=== PATIENT | female | born 1975 | race Hispanic/Latino ===

== ENCOUNTER 2022-04-13 15:28 | Emergency (ER) | payer BC ==
[2022-04-13 16:16] LABS: Urine Blood 2+ (Negative); Urine Glucose Negative (Negative); Urine Protein Negative (Negative)
[2022-04-13] MEDS ORDERED: FAMOTIDINE 20 MG/2 ML VIAL IV ONE (16:22)
[2022-04-13] MEDS ORDERED: ONDANSETRON 4 MG/2 ML VIAL ONE (16:22)
[2022-04-13] MEDS ORDERED: KETOROLAC 30 MG/ML INJ ONE (16:22)
[2022-04-13 16:27] LABS: Urine Bacteria <20 /HPF (<20); Urine Mucus Slight /HPF (None Seen); Urine RBC <5 /HPF (None Seen)
[2022-04-13 16:53] LABS: Absolute Lymphocytes (CBC) 1.2 K/uL (0.7-4.9); Hematocrit 42.9 % (36.0-45.0); Lymphocytes % 18.3 % (15.3-44.8); MCV 89.7 fL (80-100); MPV 8.6 fL (7.6-11.3); RBC Red Blood Cell Count 4.79 M/uL (3.86-4.86)
[2022-04-13 17:01] LABS: AST/SGOT 10 U/L (15-37); Albumin 4.1 g/dL (3.4-5.0); Alkaline Phosphatase 89 U/L (45-117); BUN Blood Urea Nitrogen 7 mg/dL (7-18); Bicarbonate 26 mmol/L (21-32); Bilirubin Total 0.3 mg/dL (0.2-1.0); Glomerular Filtration Rate 109 ml/min (=/>90); Glucose Level 102 mg/dL (74-106); Lipase 147 U/L (73-393); Potassium 3.6 mmol/L (3.5-5.1); Protein, Total 7.9 g/dL (6.4-8.2); Sodium Level 139 mmol/L (136-145)
[2022-04-13 17:08] LABS: ALT/SGPT < 10 U/L (13-56)
--- NOTE | 2022-04-13 17:55 | RAD REPORT ---
EXAM DESCRIPTION: CT - Abdomen Pelvis W Contrast - 04/13/2022 5:23 pm CLINICAL HISTORY: Abdominal pain COMPARISON: 2013 TECHNIQUE: Computed axial tomography of the abdomen pelvis was obtained. 100 cc Isovue-300 was admin istered intravenously. Oral contrast was not requested which limits evaluation of bowel and appendix All CT scans are performed using dose optimization technique as appropriate and may include automated exposure control or mA/KV adjustment according to patient size. FINDINGS: The liver, spleen, pancreas, adrenal and kidneys appear unremarkable. There is no evidence of diverticulitis. An 18 millimeter fatty structure abuts the mid sigmoid colon with mild stranding compatible with epip loic appendagitis. No adnexal mass Normal appendix Cholecystectomy. Small umbilical hernia IMPRESSION: Epiploic appendagitis
--- NOTE | 2022-04-13 18:44 | ER ---
Nurse's Notes [facility] Name: Dayna Tomas Age: 47 yrs Sex: Female : 1975 Arrival Date: 04/13/2022 Time: 15:30 Bed 20 Private MD: Jordon Siddiqui C Diagnosis: Dysuria;Other abdominal pain-epiploic appendagitis Presentation: 04/13 15:33 Chief complaint: Abdominal pain x 1 month, pain got worse 3 days ago. Also c/o N/V/D hb and urinary urgency and frequency x 3 days. Coronavirus screen: At this time, the client does not indicate any symptoms associated with coronavirus-19. Ebola Screen: No symptoms or risks identified at this time. Risk Assessment: Do you want to hurt yourself or someone else? Patient reports no desire to harm self or others. Onset of symptoms was March 2022. 15:33 Method Of Arrival: Ambulatory hb 15:33 Acuity: VITOR 3 hb 15:40 Initial Sepsis Screen: Does the patient meet any 2 criteria? No. Patient's initial kr3 sepsis screen is negative. Does the patient have a suspected source of infection? No. Patient's initial sepsis screen is negative. Triage Assessment: 19:00 General: Appears in no apparent distress. comfortable, Behavior is calm, cooperative, kr3 appropriate for age. Historical: - Allergies: 15:36 No Known Allergies; hb - Immunization history:: Adult Immunizations unknown. - Social history:: Smoking status: unknown. Screenin:00 [facility] ED Fall Risk Assessment (Adult) History of falling in the last 3 months, kr3 including since admission No falls in past 3 months (0 pts) Confusion or Disorientation No (0 pts) Intoxicated or Sedated No (0 pts) Impaired Gait No (0 pts) Mobility Assist Device Used No (0 pt) Altered Elimination No (0 pt) Score/Fall Risk Level 0 - 2 = Low Risk Oriented to surroundings, Maintained a safe environment, Educated pt \T\ family on fall prevention, incl call for assistance when getting out of bed, Hourly rounding (assess needs \T\ fall precautionary measures) done. Abuse screen: Denies threats or abuse. Tuberculosis screening: No symptoms or risk factors identified. 21:34 Nutritional screening: No deficits noted. kr3 Assessment: 21:36 GI: kr3 Vital Signs: 15:33 BP 138 / 97; Pulse 95; Resp 16; Temp 98.5; Pulse Ox 100% on R/A; Weight 68.49 kg; hb Height 5 ft. 1 in. (154.94 cm); Pain 7/10; 17:47 BP 111 / 63; Pulse 90; Resp 16 S; Pulse Ox 97% on R/A; kc6 15:33 Body Mass Index 28.53 (68.49 kg, 154.94 cm) hb ED Course: 15:30 Patient arrived in ED. am2 15:31 Jordon Siddiqui MD is Private Physician. am2 15:31 Daniel Hair PA is PHCP. cp 15:31 Ritesh Figueroa MD is Attending Physician. cp 15:36 Triage completed. hb 15:36 Arm band placed on. hb 15:40 Bed in low position. Call light in reach. Side rails up X 1. kr3 15:45 Estelle Zuniga, MARYAM is Primary Nurse. kr3 16:35 Inserted saline lock: 20 gauge in left antecubital area, using aseptic technique. Blood zm collected. 16:36 CBC with Diff Sent. zm 16:36 CMP Sent. zm 16:36 Lipase Sent. zm 17:25 CT Abd/Pelvis - IV Contrast Only In Process Unspecified. EDMS 18:43 Jordon Siddiqui MD is Referral Physician. cp 19:00 No provider procedures requiring assistance completed. IV discontinued, intact, kr3 bleeding controlled, No redness/swelling at site. Pressure dressing applied. Administered Medications: 16:48 Drug: Pepcid (famotidine) 20 mg Route: IVP; Site: left antecubital; kr3 21:37 Follow up: Response: No adverse reaction kr3 16:48 Drug: TORadol - (ketorolac) 15 mg Route: IVP; Site: left antecubital; kr3 21:37 Follow up: Response: No adverse reaction kr3 16:49 Drug: Zofran (Ondansetron) 4 mg Route: IVP; Site: left antecubital; kr3 21:37 Follow up: Response: No adverse reaction kr3 18:55 Drug: Rocephin (cefTRIAXone) 1 grams Route: IV; Rate: calculated rate; Site: left kr3 antecubital; 21:37 Follow up: IV Status: Completed infusion; IV Intake: 10ml kr3 Medication: 19:00 VIS not applicable for this client. kr3 Intake: 21:37 IV: 10ml; Total: 10ml. kr3 Outcome: 18:44 Discharge ordered by . cp 19:00 Discharged to home ambulatory. kr3 19:00 Condition: stable 19:00 Discharge instructions given to patient, Instructed on discharge instructions, follow up and referral plans. medication usage, Demonstrated understanding of instructions, follow-up care, medications, Prescriptions given X 3. 19:18 Patient left the ED. kr3 Signatures: Dispatcher [employer] EDMS Daniel Hair PA PA cp Baxter, Heather, RN RN Olga Quiles amRadha Rodriguez Kelley RN RN kr3 Pearl Ivory RN RN kc6
--- NOTE | 2022-04-13 18:44 | EDPHYS ---
Physician Documentation [facility] Name: Dayna Tomas Age: 47 yrs Sex: Female : 1975 Arrival Date: 04/13/2022 Time: 15:30 Bed 20 Private MD: Jordon Siddiqui C ED Physician Ritesh Figueroa HPI: 04/13 15:55 This 47 yrs old Female presents to ER via Ambulatory with complaints of cp Urinary Frequency, Abdominal Pain. 15:55 The patient presents with abdominal pain in the upper abdomen. Onset: The cp symptoms/episode began/occurred 4 week(s) ago. 15:55 Onset: The symptoms/episode began/occurred 1 month(s) ago. cp 15:55 Associated signs and symptoms: Pertinent positives: urinary frequency and urgency, cp Pertinent negatives: constipation, diarrhea, vaginal bleeding, vaginal discharge. 15:55 The symptoms radiate to back. cp 15:55 Patient reports having recent US of abdomen performed but does not know results. cp Historical: - Allergies: 15:36 No Known Allergies; hb - Immunization history:: Adult Immunizations unknown. - Social history:: Smoking status: unknown. ROS: 16:00 Constitutional: Negative for body aches, chills, fever, poor PO intake. cp 16:00 Eyes: Negative for injury, pain, redness, and discharge. cp 16:00 ENT: Negative for drainage from ear(s), ear pain, sore throat, difficulty swallowing, difficulty handling secretions. 16:00 Cardiovascular: Negative for chest pain, palpitations. 16:00 Respiratory: Negative for cough, shortness of breath, wheezing. 16:00 Abdomen/GI: Positive for abdominal pain, Negative for vomiting, diarrhea, constipation, anorexia. 16:00 : Positive for urinary frequency, Negative for vaginal bleeding, vaginal discharge. 16:00 Neuro: Negative for altered mental status, dizziness, headache, syncope, weakness. 16:00 All other systems are negative. Exam: 16:05 Constitutional: The patient appears in no acute distress, alert, awake, cp non-diaphoretic, non-toxic, well developed, well nourished, uncomfortable. 16:05 Head/Face: Normocephalic, atraumatic. cp 16:05 Eyes: Periorbital structures: appear normal, Conjunctiva: normal, no exudate, no injection, Sclera: no appreciated abnormality, Lids and lashes: appear normal, bilaterally. 16:05 ENT: External ear(s): are unremarkable, Nose: is normal, Mouth: is normal, Posterior pharynx: is normal, airway is patent, no erythema, no exudate. 16:05 Chest/axilla: Inspection: normal. 16:05 Cardiovascular: Rate: normal, Rhythm: regular. 16:05 Respiratory: the patient does not display signs of respiratory distress, Respirations: normal, no use of accessory muscles, no retractions, labored breathing, is not present, Breath sounds: are clear throughout, no decreased breath sounds, no stridor, no wheezing. 16:05 Abdomen/GI: Inspection: abdomen appears normal, Bowel sounds: active, all quadrants, Palpation: soft, in all quadrants, moderate abdominal tenderness, in the right upper quadrant, left upper quadrant and left lower quadrant, rebound tenderness, is not appreciated, involuntary guarding, is not appreciated. 16:05 Back: CVA tenderness, is absent. 16:05 Neuro: Orientation: to person, place \T\ time. Mentation: is normal, Motor: moves all fours, strength is normal, Sensation: is normal. Vital Signs: 15:33 BP 138 / 97; Pulse 95; Resp 16; Temp 98.5; Pulse Ox 100% on R/A; Weight 68.49 kg; hb Height 5 ft. 1 in. (154.94 cm); Pain 7/10; 17:47 BP 111 / 63; Pulse 90; Resp 16 S; Pulse Ox 97% on R/A; kc6 15:33 Body Mass Index 28.53 (68.49 kg, 154.94 cm) hb MDM: 15:41 Patient medically screened. 17:00 Differential diagnosis: UTI, bowel obstruction, non-specific abd pain, pancreatitis. 18:44 Data reviewed: vital signs, nurses notes, lab test result(s), radiologic studies, CT cp scan. 18:44 I considered the following discharge prescriptions or medication management in the emergency department Medications were administered in the Emergency Department. See MAR. 18:44 Special discussion: Based on the patient's Hx, exam, and Dx evaluation, there is no indication for emergent surgery or inpatient Tx. It is understood by the patient/guardian that if the Sx's persist or worsen they need to return immediately for re-evaluation. 04/13 15:52 Order name: CBC with Diff; Complete Time: 17:04 cp 04/13 17:57 Interpretation: Normal except: STACEY% 75.9. cp 04/13 15:52 Order name: CMP; Complete Time: 17:32 cp 04/13 15:52 Order name: Lipase; Complete Time: 17:32 cp 04/13 15:52 Order name: Urine Microscopic Only; Complete Time: 17:04 cp 04/13 16:16 Order name: Urine Dipstick-Ancillary; Complete Time: 17:04 EDMS 04/13 16:36 Order name: Urine --Ancillary (enter results); Complete Time: 17:04 eb 04/13 15:52 Order name: CT Abd/Pelvis - IV Contrast Only; Complete Time: 17:56 cp 04/13 17:57 Interpretation: Report reviewed. cp 04/13 15:52 Order name: IV Saline Lock; Complete Time: 16:36 cp 04/13 15:52 Order name: Labs collected and sent; Complete Time: 16:36 cp 04/13 17:32 Order name: Urine Culture cp 04/13 15:52 Order name: Urine Dipstick-Ancillary (obtain specimen); Complete Time: 16:24 cp 04/13 15:52 Order name: Urine Test (obtain specimen); Complete Time: 16:24 cp 04/13 17:58 Order name: PO challenge; Complete Time: 19:18 cp Administered Medications: 16:48 Drug: Pepcid (famotidine) 20 mg Route: IVP; Site: left antecubital; kr3 21:37 Follow up: Response: No adverse reaction kr3 16:48 Drug: TORadol - (ketorolac) 15 mg Route: IVP; Site: left antecubital; kr3 21:37 Follow up: Response: No adverse reaction kr3 16:49 Drug: Zofran (Ondansetron) 4 mg Route: IVP; Site: left antecubital; kr3 21:37 Follow up: Response: No adverse reaction kr3 18:55 Drug: Rocephin (cefTRIAXone) 1 grams Route: IV; Rate: calculated rate; Site: left kr3 antecubital; 21:37 Follow up: IV Status: Completed infusion; IV Intake: 10ml kr3 Disposition Summary: 04/13/22 18:44 Discharge Ordered Location: Home cp Problem: new cp Symptoms: have improved cp Condition: Stable cp Diagnosis - Dysuria cp - Other abdominal pain - epiploic appendagitis cp Followup: cp - With: Jordon Siddiqui MD - When: 2 - 3 days - Reason: Recheck today's complaints Discharge Instructions: - Discharge Summary Sheet cp - Dysuria cp - Epiploic Appendagitis cp Forms: - Medication Reconciliation Form cp - Thank You Letter cp - Antibiotic Education cp - Prescription Opioid Use cp Prescriptions: - Augmentin 875-125 mg Oral Tablet - take 1 tablet by ORAL route every 12 hours for 7 days; 14 tablet; Refills: 0, cp Product Selection Permitted - Zofran 4 mg Oral Tablet - take 1 tablet by ORAL route every 12 hours As needed; 20 tablet; Refills: 0, cp Product Selection Permitted - Diclofenac Sodium 75 mg Oral Tablet Sustained Release - take 1 tablet by ORAL route 2 times per day; 30 tablet; Refills: 0, Product cp Selection Permitted Signatures: Dispatcher [employer] EDWV Daniel Hair PA PA cp Idania Bruce RN RN Estelle Zuniga RN RN kr3 Corrections: (The following items were deleted from the chart) 04/14 19:12 04/13 15:55 Associated signs and symptoms: Pertinent positives: urinary frequency and cp dysuria, Pertinent negatives: constipation, diarrhea, vaginal bleeding, vaginal discharge, cp
[2022-04-13 19:22] VITALS: TEMP 98.5
[2022-04-13 19:23] VITALS: BP 111/63; O2SAT 97
== END 2022-04-13 19:18 | disposition home or self-care (01) ==
LOC: ER 15:28
DX: K63.89 Other specified diseases of intestine (principal); R30.0 Dysuria
CPT/HCPCS: 96365; 87088; 85025; 87086; 36415; 81025; 83690; 80053; 74177; 96375; 99284; 96366; Q9967; J2405; 81003; 81015

== ENCOUNTER 2022-04-18 17:41 | Inpatient (IN) | payer BC ==
[2022-04-18 18:17] LABS: SARS-CoV-2 Antigen Rapid Res Negative (Negative)
[2022-04-18] MEDS ORDERED: ONDANSETRON 4 MG/2 ML VIAL IV PRN (19:51)
[2022-04-18] MEDS ORDERED: MORPHINE 2 MG/ML SYR IV PRN (19:51)
[2022-04-18] MEDS: D5 0.9 NS 1,000 ML IV SCH (20:47)
[2022-04-18 21:01] LABS: Absolute Lymphocytes (CBC) 1.6 K/uL (0.7-4.9); Hematocrit 39.1 % (36.0-45.0); Lymphocytes % 20.2 % (15.3-44.8); MCV 88.7 fL (80-100); MPV 9.3 fL (7.6-11.3); RBC Red Blood Cell Count 4.41 M/uL (3.86-4.86)
[2022-04-18 21:18] LABS: AST/SGOT 25 U/L (15-37); Albumin 3.8 g/dL (3.4-5.0); Alkaline Phosphatase 86 U/L (45-117); BUN Blood Urea Nitrogen 8 mg/dL (7-18); Bicarbonate 27 mmol/L (21-32); Bilirubin Total 0.3 mg/dL (0.2-1.0); Glomerular Filtration Rate 109 ml/min (=/>90); Glucose Level 93 mg/dL (74-106); Lipase 177 U/L (73-393); Magnesium 2.1 mg/dL (1.6-2.4); Potassium 3.8 mmol/L (3.5-5.1); Protein, Total 7.3 g/dL (6.4-8.2); Sodium Level 138 mmol/L (136-145)
[2022-04-18 21:38] LABS: ALT/SGPT < 10 U/L (13-56)
[2022-04-18] MEDS: CIPROFLOXACIN 400mg IV 400 MG/200 ML BAG IV SCH (21:43)
[2022-04-18 21:59] VITALS: BMI 23.2
[2022-04-19] MEDS: METRONIDAZOLE 500mg IVPB 500 MG/100 ML BAG IV SCH ×3 (00:33→17:03)
--- NOTE | 2022-04-19 07:04 | P.CNS ---
Date of Consult: 04/19/22 Reason for consult: Abdominal pain History of present illness: Patient is a 47-year-old female who has had diffuse abdominal pain for 3 weeks localizing in the right lower quadrant and lower midline area now associated with occasional nausea, diarrhea, pain and frequency. Patient denies sore throat, runny nose, cough, headache, dizziness, chest pain, fever or chills. Patient had a work-up in which the CAT scan reveals a epiploic appendagitis of the sigmoid colon in the infraumbilical midline region. Patient has been treated with oral antibiotics and has failed medical management. Review of systems: Otherwise unremarkable Past medical history: Fibromyalgia Past surgical history: Lap liliya, umbilical hernia repair and Allergies: None Social history: Patient does not smoke or drink alcohol Family history: Hypertension Vital signs: Stable, afebrile Physical exam: Awake, alert and oriented x3 Head and neck exam: No neck masses Chest: Clear Heart: S1-S2 Abdomen: Soft, nondistended, positive bowel sounds with tenderness in the infraumbilical midline and right lower quadrant region with minimal rebound with no peritonitis Extremity: Neurovascular intact, nontender Neuro: Nonfocal Diagnostic data: Laboratory data reviewedessentially within normal limits. Ultrasound and CT reviewed. Assessment: Abdominal pain secondary to epiploic appendagitis Plan/recommendation: Admit, n.p.o., IV fluids and to the OR for diagnostic laparoscopy epiploic, appendagitis excision possible open. Patient understands risk, benefits and alternatives and agrees to procedure. CC: Dr. Siddiqui's office
[2022-04-19] MEDS ORDERED: FENTANYL CITR 100 MCG/2 ML ONE (07:06)
[2022-04-19] MEDS ORDERED: propofoL 200 MG/20 ML VIAL IV ONE (07:06)
[2022-04-19] MEDS ORDERED: ROCURONIUM 50 MG/5 ML VIAL IV ONE (07:07)
[2022-04-19] MEDS ORDERED: MIDAZOLAM HCL 2 MG/2 ML INJ ONE (07:07)
[2022-04-19] MEDS ORDERED: KETOROLAC 30 MG/ML INJ ONE (07:07)
[2022-04-19] MEDS ORDERED: dexAMETHasone 10 MG/ML VIAL ONE (07:07)
[2022-04-19] MEDS ORDERED: ONDANSETRON 4 MG/2 ML VIAL ONE (07:10)
[2022-04-19] MEDS ORDERED: LIDOCAINE 2% MPF 5 ML VIAL ONE (07:10)
[2022-04-19] MEDS ORDERED: Ringers Lactate 1,000 ML IV ONE (07:35)
[2022-04-19] MEDS ORDERED: GLYCOPYRROLATE 0.2 MG/ML SYR ONE (08:52)
[2022-04-19] MEDS ORDERED: NEOSTIGMINE 1 MG/ML -10 ML VIAL ONE (08:52)
[2022-04-19] MEDS: CIPROFLOXACIN 400mg IV 400 MG/200 ML BAG IV SCH ×2 (09:00→21:51)
--- NOTE | 2022-04-19 09:04 | P.OP ---
Date of Service: 04/19/22 Preop diagnosis: Abdominal pain, inflamed epiploic appendage of the sigmoid colon Postop diagnosis: Same, with early acute appendicitis Procedure performed: Diagnostic laparoscopy, laparoscopic appendectomy, laparoscopic excision of a inflamed sigmoid colon epiploic appendage Surgeon: Farhat Dsouza MD Teaching Associate: RAJIV Gandara Estimated blood loss: Minimal Specimen: Appendix, inflamed epiploic appendage of the sigmoid colon Findings: As above Anesthesia: General Complications: None Drains: None Fluids and blood products: Nonapplicable Disposition: Recovery room Operative note: Patient brought to the OR and placed in supine position. General anesthesia begun. Patient prepped and draped in the usual sterile fashi on. Marcaine 0.5% infiltrated locally. 15 blade used to make a 1 cm left upper quadrant incision. Subcutaneous tissue divided and bleeding controlled with cautery. Fascia identified and divided. #1 Vicryl stay suture placed. Peritoneal cavity entered with sharp and blunt dissection. 12 mm trocar placed into the peritoneal cavity under direct vision. Pneumoperitoneum established. Two 5 mm trocars placed. One 5 mm trocar placed in the left lower quadrant and the other in the suprapubic region. Diagnostic laparoscopy revealed a dilated inflamed appendix. A inflamed epiploic appendage of the sigmoid colon was identified as well. Small cyst was present on the right ovary. Picture was taken and Dr. Saini was consulted. There was no intervention required is a small simple ovarian cyst. The appendix was removed with the Endo PERFECTO stapling device. An LigaSure was used to excise the inflamed epiploic appendage. Both structures were removed via Endo Catch bag. Both areas were examined carefully. There was no evidence of bleeding or bowel injury appreciated. All trocars removed under direct vision. Stay sutures tied to each other to reapproximate the fascial defect. Subcutaneous wounds irrigated and bleeding controlled with cautery. 3-0 chromic used to approximate subcutaneous tissue and close skin. Sterile dressing applied and patient awakened. Patient taken to recovery room in good general condition. CC: Dr. Siddiqui's office
[2022-04-19] MEDS: D5 0.9 NS 1,000 ML IV SCH (09:20)
[2022-04-19] MEDS ORDERED: HYDROCODONE/APAP 7.5/325 MG TAB PO PRN (09:34)
[2022-04-19] MEDS ORDERED: ONDANSETRON 4 MG/2 ML VIAL IV PRN (09:35)
[2022-04-19] MEDS: HYDROMORPHONE HCL 1 MG/ML INJ IV PRN ×2 (09:40→09:51)
[2022-04-19 10:04] VITALS: O2SAT 98
[2022-04-19] MEDS ORDERED: NA CHLORIDE 0.9% 500 ML IV ONE (14:53)
[2022-04-19] MEDS: NA CHLORIDE 0.9% 1,000 ML IV SCH (15:07)
[2022-04-19 16:27] LABS: Absolute Lymphocytes (CBC) 0.4 K/uL (0.7-4.9); Hematocrit 36.6 % (36.0-45.0); Lymphocytes % 3.9 % (15.3-44.8); MCV 87.8 fL (80-100); MPV 9.5 fL (7.6-11.3); RBC Red Blood Cell Count 4.17 M/uL (3.86-4.86)
[2022-04-19 16:42] LABS: Potassium 3.7 mmol/L (3.5-5.1)
--- NOTE | 2022-04-19 18:11 | HP ---
Date of Admission: 04/18/2022 Chief Complaint: Abdominal pain. History Of Present Illness: This is a 47-year-old very pleasant female patient who came to see me week before last, with epigastric and periumbilical abdominal pain that started about 2 weeks before she came into see me and she started to take [id number] Prilosec 20 mg daily that provided some relief. Patient at that time reported that her pain was getting worse after meal and she was feeling bloated. Abdominal ultrasound was ordered and CBC, chemistry, lipase, all those blood work was unremarkable. Abdominal ultrasound showed mild fatty liver. The patient was asked to come see me for followup in 2 weeks and she returned to office today and she also reported that day after her abdominal ultrasound, which was done on April 12 very next day which is April 13, she ended up in the emergency room with worsening of abdominal pain and this time her pain was in the lower abdomen. After she was evaluated in the ER, she was released to go back home with some oral antibiotics and I did review her ER visit record and the patient had a CBC chemistry done in the emergency room, which was unremarkable and urinalysis culture did not grow any bacteria. CAT scan of the abdomen and pelvis showed small umbilical hernia, and epiploic appendagitis. The patient was given IV ceftriaxone in the emergency room and she was discharged to go home with Augmentin, Zofran, and diclofenac. The patient has been taking these medications for last 5 days and today when she came to see me for followup, she reported no improvement in her symptoms. Denies any fever, chills. No nausea, no vomiting. She still feels bloated, associated diarrhea, and describes as loose bowel movement 2-4 times a day, usually after she eats. After I evaluated her, decision was made to admit her to hospital. Considering not improving with appropriate medical management. Allergies: NO KNOWN ALLERGIES. Medications: Amitriptyline 10 mg, she takes half a tablet at bedtime; omeprazole 40 mg daily; vitamin B12 500 mcg daily; and she takes Augmentin, Zofran, and diclofenac as prescribed recently from emergency room. Review of Systems: GI: As mentioned above. All other systems reviewed and negative. Past Medical History: Significant for a known alcoholic fatty liver disease, scoliosis, fibromyalgia, vitamin B12 deficiency. Past Surgical History: Repair of umbilical hernia July 22, 2011; cholecystectomy July 22, 2011; and . Family History: Father has hypertension. Mother is alive and well brother has diabetes. Sister with hypertension. Social History: Negative for smoking. Use of alcohol rarely. Physical Examination: Vital Signs: When she was first admitted to the hospital, temperature 98.4, pulse 67, respiratory rate 16, blood pressure 129/55, oxygen saturation 98% on room air. Height 5 feet 7 inches, weight 148 pounds. General: Awake, alert, oriented, not in distress. HEENT: Head atraumatic, normocephalic. Conjunctivae nonerythematous. Sclerae white. Mouth, no thrush or edema noted. Ears/Nose, no mass, lesion, discharge noted. Neck: Supple. No JVD, lymph nodes, bruit, thyromegaly noted. Lungs: Bilateral good equal air entry. Clear to auscultation. No rhonchi. No rales. Heart: Normal heart sounds, no murmur or gallop. Abdomen: The patient has significant tenderness in right lower quadrant, left lower quadrant, and suprapubic region. No rebound tenderness. No distention. Bowel sounds normoactive. No hepatosplenomegaly. No bleed. Extremities: No leg edema. No calf tenderness. Skin: No rash, ulcer, cellulitis. Lymphatics: No lymph node enlargement in neck, supraclavicular, infraclavicular region. Neuro: No focal neurological deficit. Chest: Unremarkable. External Genitalia: Deferred. Rectal: Deferred. Laboratory Data: White count 7.9, hemoglobin 13.2, platelets 187. Sodium 138, potassium 3.8, chloride 107, bicarb 27, BUN 8, creatinine 0.68, glucose 93. Liver function tests unremarkable. Lipase 177. COVID-19 test negative. CAT scan of abdomen and pelvis from April 13, 2022 shows small umbilical hernia and epiploic appendagitis. Impression: 1. Epiploic appendagitis. 2. Non alcoholic fatty liver disease. 3. Vitamin B12 deficiency. Plan: We will go ahead and admit the patient to hospital for further evaluation and management of this problem. We will order clear liquid diet and keep her n.p.o. after midnight. Start empiric antibiotics, Cipro, and metronidazole, and IV fluid. Pain and nausea medication was ordered. We will use it as needed. SCD was ordered for DVT prophylaxis. I did call Dr. Dsouza from General Surgery and discussed details with him and requested him to see patient and he has asked me to keep the patient n.p.o. after midnight and he will evaluate the patient first thing in the morning and make a decision regarding any surgical intervention. I will see her tomorrow morning for followup. LILI/NANCY Voice ID: [id number] MTDD
[2022-04-19] MEDS: CODEINE 30MG/APAP 300MG TAB PO PRN (18:30)
[2022-04-20] MEDS: METRONIDAZOLE 500mg IVPB 500 MG/100 ML BAG IV SCH ×2 (00:30→08:27)
[2022-04-20] MEDS: CODEINE 30MG/APAP 300MG TAB PO PRN (00:30)
[2022-04-20] MEDS: NA CHLORIDE 0.9% 1,000 ML IV SCH ×2 (01:00→04:16)
[2022-04-20] MEDS ORDERED: POTASSIUM CL SA 10 MEQ TAB PO ONE (09:00)
[2022-04-20 09:25] LABS: Hematocrit 36.8 % (36.0-45.0)
--- NOTE | 2022-04-20 09:33 | PN ---
Date of Progress Note: 04/19/2022 Subjective: The patient was seen this morning for followup. She was in the surgery holding room. P jonathonr to her surgery, I saw her and also discussed with Dr. Dsouza, who was going to do surgery this mo rning. She did not report any other new complaints except her abdominal pain that she came in with. Physical Examination: HEENT: Unremarkable. Lungs: Clear to auscultation. Heart: Sounds normal. Abdomen: Soft. Bowel sounds normal. No guarding, rigidity, or distention. Presence of tenderness in right lower quadrant suprapubic area and left lower quadrant present, unchanged from yesterday. Extremities: No leg edema. Impression: Epiploic appendagitis, status post surgery. Plan: The patient had surgery done today for removal of this epiploic appendage and also had laparos copic appendectomy done by Dr. Dsouza. After the surgery, our plan was to possibly discharge her to o home, but when she was in the room, her blood pressure actually went too low. Systolic blood press ure was around 50 to 60 and she felt like she was going to pass out and she was in the bathroom at th at time with presence of nurse, so she was brought back to bed immediately and once she was in supine position in the bed, her blood pressure started to come up to 90 systolic, when nurse contacted me w ith all this information. Obviously with this, we canceled our discharge plan for today. IV fluid 5 00 cc of normal saline wide open was ordered. Stat CBC and chemistry were ordered and nurse was advi sed to contact Dr. Dsouza. Her white blood count today after this episode was 9.7, hemoglobin 12.6, p latelets 191. Sodium 137, potassium 3.7, chloride 108, bicarb 28, BUN 6, creatinine 0.66, glucose 15 5. We will go ahead and continue this IV fluid. I will see her tomorrow for followup, possible discharge to go home crystal rrow. LILI/MODL Voice ID: [id number] Report ID: [id number]
[2022-04-20] MEDS: CIPROFLOXACIN 400mg IV 400 MG/200 ML BAG IV SCH (09:45)
[2022-04-20 16:22] VITALS: BP 117/62; TEMP 98
--- NOTE | 2022-04-21 11:06 | DS ---
Date of Discharge: 04/20/2022 Disposition: Discharged to go home. Physical Examination: HEENT: Unremarkable. Lungs: Clear to auscultation. Heart: Sounds normal. Abdomen: Soft. Bowel sounds normal. No guarding, rigidity, distention. Presence of mild tendernes s around the surgical incision site. No rebound tenderness. Extremities: No leg edema. Laboratory Data: Upon admission, white count 7.9, hemoglobin 13.2, platelets 187. Yesterday morning , white count 9.7, hemoglobin 12.6, platelets 190. Upon admission, sodium 138, potassium 3.8, chlori de 107, bicarb 27, BUN 8, creatinine 0.68, glucose 93. Liver function tests are unremarkable. Lipas e 177. Hospital Course: This is a 47-year-old very pleasant female patient admitted to the hospital with ab dominal pain. Please see dictated H and P for more information. Patient came to emergency room on F ebruary 2022, with abdominal pain. Further workup done in the emergency room including blood work and CAT scan showed evidence of epiploic appendagitis. Patient was discharged to go home on oral an tibiotic, Augmentin, and anti-inflammatory medication, diclofenac. Patient has been taking this medi cation, but she did not improve and her symptoms were getting worse. Her oral intake of food and liq uid was also poor. With all these complaints, she came to office. After she was evaluated, she was admitted to hospital. After she was admitted, IV fluid, IV antibiotics were started, which was Cipro and Flagyl and pain medication was ordered. Dr. Dsouza from General Surgery was consulted and he too k the patient to surgery today, did a laparoscopic procedure to remove her appendix and this epiploic appendage. After the surgery, patient had episode of hypotension and near-syncope type of episode w ith systolic blood pressure dropping into 50-60 range and this happened when patient was going to the bathroom with assistance, so she did not have any fall or injury and she was brought back to bed. I V fluid bolus was given and maintenance IV fluid was given. Blood work was done. Hemoglobin has rem ained stable. Patient also had urinary retention requiring Fernandes catheter placement. Patient report s that about 10-11 years ago when she had gallbladder surgery, she had similar problem with urinary r etention and drop in the blood pressure after the surgery. So, we monitored her. Vital signs remain ed stable. She started tolerating diet very well and today she did ambulate well without any difficu lties. Hemodynamically, she has remained stable and we were able to remove Fernandes catheter and she di d urinate on her own after removal of Fernandes catheter and subsequently she was discharged to go home i n stable condition. Discharge Diagnoses: 1.Epiploic appendagitis. 2.Near syncope. 3.Hypotension. 4.Urinary retention. 5.Vitamin B12 deficiency. 6.Non-alcoholic fatty liver disease. Discharge Medications And Instructions: 1.Continue prior home medication except stopping amoxicillin and stop diclofenac. 2.Start Cipro 500 mg 2 times a day for 1 week; metronidazole 500 mg 3 times a day for 1 week. 3.Use Tylenol 500 mg 4 times a day as needed for mild pain and if she has more intense pain, then lizzy grace will use hydrocodone prescription, which was called into her pharmacy by Dr. Dsouza. 4.Follow up at my office next week and follow up with Dr. Dsouza in 1-2 weeks. LILI/MODL Voice ID: [id number] Report ID: [id number]
== END 2022-04-20 17:20 | disposition home or self-care (01) | DRG 331 ==
LOC: 2ND 19:17
PROVIDERS: ADMIT Internal Medicine; ATTEND Internal Medicine
PROC: 0DTJ4ZZ Resection of Appendix, Percutaneous Endoscopic Approach (ICD-10-PCS; 2022-04-19)
PROC: 0DBN4ZZ Excision of Sigmoid Colon, Percutaneous Endoscopic Approach (ICD-10-PCS; principal; 2022-04-19 08:00)
DX: K63.89 Other specified diseases of intestine (principal); M79.7 Fibromyalgia; K76.0 Fatty (change of) liver, not elsewhere classified; E53.8 Deficiency of other specified B group vitamins; I95.81 Postprocedural hypotension; R55 Syncope and collapse; R33.9 Retention of urine, unspecified; Z90.49 Acquired absence of other specified parts of digestive tract; Z79.899 Other long term (current) drug therapy; Z20.822 Contact with and (suspected) exposure to COVID-19
CPT/HCPCS: 36415; 80048; 80053; 83690; 83735; 85014; 85018; 85025; 87811; 88304; 94010; J0744; J1100; J1170; J2001; J2250; J2270; J2405; J2704; J2710; J3010; J7030; J7040; J7042; J7120